=== PATIENT | male | born 1950 | race Caucasian/White ===

== ENCOUNTER 2019-10-29 12:24 | Outpatient (CLI) | payer MEDICARE, SELFPAY ==
[2019-10-29 14:57] LABS: INR 7.68 (0.8-1.2)
== END 2019-10-29 12:25 | disposition home or self-care (01) ==
LOC: LAB 12:33
PROVIDERS: Visit Provider Family Medicine
DX: Z95.4 Presence of other heart-valve replacement (principal)
CPT/HCPCS: 36415; 85610

== ENCOUNTER 2021-02-06 08:43 | Outpatient (CLI) | payer MEDICARE, SELFPAY ==
[2021-02-06 09:00] VITALS: BP 146/81; PULSE 61; RESP 18; TEMP 36.9; O2SAT 96
[2021-02-06 10:11] VITALS: BP 140/79; PULSE 59; RESP 16; TEMP 31.3; TEMP 36.9; O2SAT 97
[2021-02-06 11:10] VITALS: BP 154/88; PULSE 64; RESP 16; TEMP 36.7; O2SAT 98
== END 2021-02-06 08:44 | disposition home or self-care (01) ==
PROVIDERS: PCP Family Medicine; Visit Provider Nurse Practitioner
DX: U07.1 COVID-19 (principal)
CPT/HCPCS: 96365

== ENCOUNTER → 2021-12-16 08:52 | Outpatient (BNVA) | payer MEDICARE, SELFPAY | PROVIDERS: PCP Family Medicine; Visit Provider Specialist | DX: M17.0 Bilateral primary osteoarthritis of knee (principal); M21.169 Varus deformity, not elsewhere classified, unspecified knee | CPT/HCPCS: 20610; 73560; 73565; 80503; 99204; J1100; J2795; J3301 ==